=== PATIENT | female | born 1960 | race Caucasian/White ===

== ENCOUNTER → 2017-09-18 10:28 | Outpatient (CLI) | payer OTHER, SELFPAY ==
--- NOTE | 2017-09-18 10:31 | BI_ITS ---
MAMMOGRAPHY - BILATERAL SCREENING REASON FOR EXAM: Female, 57 years old. Routine annual screening examination. PERTINENT HISTORY: Non-contributory. TECHNIQUE: Digital bilateral breast justin (3D mammographic acquisition) in the CC and MLO projections. 2-D mediolateral oblique (MLO) and craniocaudad (CC) views of both breasts were obtained. CAD: Full Field Digital Mammography with Computer Added Detection was performed. COMPARISON: Comparison is made with prior study dated September 13, 2016 and April 07, 2014. FINDINGS: Breast Composition: There are scattered areas of fibroglandular density. There are no dominant masses or suspicious calcifications. Stable small bilateral axillary lymph nodes. No other significant abnormalities are identified. There has been no significant change since the prior study. BI/SCREENING MAMM (CAD), BILAT IMPRESSION: Stable bilateral screening mammogram. Yearly follow-up mammogram recommended. (A) ASSESSMENT CATEGORY: BIRADS Category 2: Benign. A letter regarding these results will be sent to the patient by the facility within 30 days. Approximately 10% of breast cancers are not detected by mammography. A normal mammogram should not delay biopsy of a clinically suspicious abnormality. [id number] Electronically Signed: Teodoro Mcghee MD at 12:58 EDT Tel [phone], Service support ,
--- NOTE | 2017-09-18 10:34 | BD_ITS ---
STUDY: DUAL ENERGY X-RAY ABSORPTIOMETRY / DXA REASON FOR EXAM: Female, 57 years old. The patient is postmenopausal. No loss of height. TECHNIQUE: Bone Mineral Density (BMD) measurements of lumbar spine and bilateral hips were obtained. COMPARISON: None. FINDINGS: Lumbar Spine (L1-L4): g/cm2 (1.077) / T-score (-0.9) / Z-score (0.2) Findings are suggestive of normal bone density with a low fracture risk. Left Femur Total: g/cm2 (0.959) / T-score (-0.4) / Z-score (0.4) Left Femoral Neck: g/cm2 (0.824) / T-score (-1.5) / Z-score (-0.4) Right Femur Total: g/cm2 (0.983) / T-score (-0.2) / Z-score (0.6) Right Femoral Neck: g/cm2 (0.852) / T-score (-1.3) / Z-score (-0.2) BD/Dexa Bone Density Study IMPRESSION: The patient is considered osteopenic as outlined below according to World Noel Organization (WHO) criteria with a moderate fracture risk. Reference Information: The T-score is the number of standard deviations above or below the standard which is normal for young adults at their peak bone mineral density. The World Health Organization (WHO) interprets the T-scores as follows: Above -1 Normal bone density Between -1 and -2.5 Osteopenia Equal to / or below -2.5 Osteoporosis As a practical clinical guideline, osteopenia may be graded as follows: Mild -1 through -1.5 Moderate -1.6 through -2.0 Severe -2.1 through -2.4 The Z-score is the number of standard deviations above or below age-matched controls. A Z-score of less than -1.5 would be considered abnormal. References: 1. NIH Osteoporosis and Related Bone Diseases http://www.osteo.org 2. International Society for Clinical Densitometry http://www.iscd.org 3. National Osteoporosis Foundation http://www.nof.org Electronically Signed: Teodoro Mcghee MD at 11:13 EDT Tel [phone], Service support ,
== END ==
PROVIDERS: Family Provider Internal Medicine; PCP Internal Medicine; Visit Provider Internal Medicine
DX: Z12.31 Encounter for screening mammogram for malignant neoplasm of breast (principal); Z78.0 Asymptomatic menopausal state
CPT/HCPCS: 77063; 77067; 77080

== ENCOUNTER → 2019-04-29 08:16 | Outpatient (CLI) | payer OTHER, SELFPAY ==
[2019-02-14 08:32] VITALS: BMI 39.3
--- NOTE | 2019-04-29 08:20 | BI_ITS ---
MAMMOGRAPHY - BILATERAL SCREENING 3-D TOMOSYNTHESIS REASON FOR EXAM: Female, 59 years old. NO FAM HX -- GAINED WEIGHT SINCE LAST EXAM PERTINENT HISTORY: No significant family history. TECHNIQUE: 2-D mammograms and 3-D Tomosynthesis of the breast (s) were performed. CAD was performed. COMPARISON: 09/18/2017, 09/13/2016, 04/07/2014 FINDINGS: The breast composition is composed of scattered fibroglandular density. Scattered benign calcifications are seen. No dense spiculated masses or suspicious microcalcifications are identified. No architectural distortion is identified. There is no skin thickening or retraction. There has been no significant change since the prior study. BI/SCREEN MAMM (CAD) W/JESE BILAT IMPRESSION: No mammographic signs of malignancy. Routine yearly mammograms recommended. ASSESSMENT CATEGORY: BIRADS Category 2: Benign. A letter regarding these results will be sent to the patient by the facility within 30 days. FOLLOW UP RECOMMENDATION: Yearly follow up mammogram recommended. (A) Approximately 10% of breast cancers are not detected by mammography. A normal mammogram should not delay biopsy of a clinically suspicious abnormality. Electronically Signed: Bernardo Borrego MD at 14:57 EST Tel [phone], Service support ,
== END ==
PROVIDERS: Family Provider Internal Medicine; PCP Internal Medicine; Referring Provider Internal Medicine; Visit Provider Internal Medicine
DX: Z12.31 Encounter for screening mammogram for malignant neoplasm of breast (principal)
CPT/HCPCS: 77063; 77067

== ENCOUNTER → 2020-04-05 09:46 | Outpatient (CLI) | payer OTHER, SELFPAY ==
[2020-03-08 08:53] VITALS: BMI 38.5
[2020-04-05 12:22] LABS: Anion Gap 3 (5-15); BUN 21 mg/dL (7-18); BUN/Creat Ratio 19.6 RATIO (10-20); Calcium,Total 9.8 mg/dL (8.5-10.1); Chloride 107 mmol/L (98-107); Creatinine, Serum 1.07 mg/dL (0.55-1.02); EST Glomerular Filtration Rate 55 mL/min (>60); Est Glom Filt Rate - Afr Amer 67 mL/min (>60); Glucose 107 mg/dL (74-106); Potassium 4.2 mmol/L (3.5-5.1); Sodium Level 140 mmol/L (136-145)
== END ==
PROVIDERS: PCP Internal Medicine; Referring Provider Nurse Practitioner Family; Visit Provider Nurse Practitioner Family
DX: I48.0 Paroxysmal atrial fibrillation (principal); E78.5 Hyperlipidemia, unspecified
CPT/HCPCS: 36415; 80048

== ENCOUNTER → 2020-05-04 09:25 | Outpatient (CLI) | payer OTHER, SELFPAY ==
[2019-02-14 08:32] VITALS: BMI 39.3
[2020-03-08 08:53] VITALS: BMI 38.5
--- NOTE | 2020-05-04 09:27 | BI_ITS ---
MAMMOGRAPHY - BILATERAL SCREENING REASON FOR EXAM: Female, 60 years old. Routine annual screening examination. PERTINENT HISTORY: NO FAM HX GAINED WEIGHT SINCE LAST EXAM NO SX TECHNIQUE: Digital bilateral breast jese (3D mammographic acquisition) in the CC and MLO projections. 2-D mediolateral oblique (MLO) and craniocaudad (CC) views of both breasts were obtained. CAD: Full Field Digital Mammography with Computer Added Detection was performed. COMPARISON: 04/29/2019 and 09/18/2017 FINDINGS: Breast Composition: The breasts are heterogeneously dense, which may obscure small masses. There are no dominant masses or suspicious calcifications. No other significant abnormalities are identified. BI/SCREEN MAMM (CAD) W/JESE BILAT IMPRESSION: Stable bilateral screening mammogram. Yearly follow-up mammogram recommended. (A) ASSESSMENT CATEGORY: BIRADS Category 2: Benign. A letter regarding these results will be sent to the patient by the facility within 30 days. Approximately 10% of breast cancers are not detected by mammography. A normal mammogram should not delay biopsy of a clinically suspicious abnormality. [id number] Electronically Signed: Maribeth Medina, at 16:33 EST Tel , Service support ,
--- NOTE | 2020-05-04 09:30 | BD_ITS ---
STUDY: DUAL ENERGY X-RAY ABSORPTIOMETRY / DXA REASON FOR EXAM: Female, 60 years old. RN TELEPHONE TRIAGE- EARLY AT 40 YRS OLD -- DIABETIC- TAKES MEDS -- HX OF SMOKING- QUIT IN 1988 -- TAKES THYROID MEDICATION -- TAKES 1200MG CALCIUM + MULTI -- DOES LITTLE EXERCISE -- NO MARINA TECHNIQUE: Bone Mineral Density (BMD) measurements of lumbar spine and bilateral hips were obtained. COMPARISON: Comparison is made with prior examination dated 09/18/2017. FINDINGS: Lumbar Spine (L1-L4): g/cm2 (1.021) / T-score (-1.5) / Z-score (-0.2) Findings are suggestive of osteopenia with a low fracture risk. Left Femur Total: g/cm2 (0.980) / T-score (-0.2) / Z-score (0.8) Left Femoral Neck: g/cm2 (0.881) / T-score (-1.1) / Z-score (0.1) Right Femur Total: g/cm2 (0.992) / T-score (-0.1) / Z-score (0.8) Right Femoral Neck: g/cm2 (0.870) / T-score (-1.2) / Z-score (0.1) The T-Scores on the most recent prior examination were: Lumbar Spine (L1-L4): There has been worsening of bone density since the previous examination. Left Femur Total: which represents an improvement of 2.2%. Right Femur Total: which represents an improvement of 0.9%. BD/Dexa Bone Density Study IMPRESSION: The patient is considered osteopenic as outlined below according to World Noel Organization (WHO) criteria with a low fracture risk. There has been improvement of bone density since the previous examination. Reference Information: The T-score is the number of standard deviations above or below the standard which is normal for young adults at their peak bone mineral density. The World Health Organization (WHO) interprets the T-scores as follows: Above -1 Normal bone density Between -1 and -2.5 Osteopenia Equal to / or below -2.5 Osteoporosis As a practical clinical guideline, osteopenia may be graded as follows: Mild -1 through -1.5 Moderate -1.6 through -2.0 Severe -2.1 through -2.4 The Z-score is the number of standard deviations above or below age-matched controls. A Z-score of less than -1.5 would be considered abnormal. References: 1. NIH Osteoporosis and Related Bone Diseases www osteo.org 2. International Society for Clinical Densitometry www iscd.org 3. National Osteoporosis Foundation www nof.org Electronically Signed: Teodoro Mcghee, at 10:02 EST , Service support ,
== END ==
PROVIDERS: PCP Internal Medicine; Referring Provider Internal Medicine; Visit Provider Internal Medicine
DX: Z12.31 Encounter for screening mammogram for malignant neoplasm of breast (principal); Z78.0 Asymptomatic menopausal state
CPT/HCPCS: 77063; 77067; 77080

== ENCOUNTER 2021-04-05 07:34 | Emergency (ER) | payer OTHER, SELFPAY ==
[2021-04-05 07:35] VITALS: BP 164/74; PULSE 79; RESP 16; TEMP 36.1; O2SAT 96; BMI 39.3
--- NOTE | 2021-04-05 07:54 | VDLE_ITS ---
Reason For Study: RLE pain RIGHT GSV is normal. CFV is compressible, spontaneous, phasic, competent and demonstrates normal augmentation. FV is compressible, spontaneous, phasic, competent and demonstrates normal augmentation. POP V is compressible, spontaneous, phasic, competent and demonstrates normal augmentation. T/P Trunk is compressible. PTV is compressible. RT PerV is compressible. Procedure This is a venous duplex using B-mode, color flow and spectral Doppler. Exam performed portable in ED. A preliminary report was called and/or faxed to ED @ 8:55 am. VL/Venous Duplex US, Unilateral Interpretation Summary Right lower extremity with no evidence of DVT or SVT noted. Ordering Physician: Levon Rod Referring Physician: Melva Crews Performed By: Oksana Mckeon, HUMZA, RVT
--- NOTE | 2021-04-05 07:55 | ED.VIS.LOWEX ---
HPI History of Present Illness Chief Complaint: Lower Extremity Injury Informant: patient Onset/Context/Timing Onset: Yesterday Context: Gradual Onset Timing: Continuous Quality of Pain: - (sore/ache) Location: right medial calf Current Severity: Mild Maximum Severity: Moderate Worsened by: walking, moving, palpation Relieved by: resting Associated Symptoms Associated Symptoms: Positive for - (no edema); Negative for Parasthesia, Weakness and Loss of Funtion Narrative Narrative: spont onset R calf pain w/o swelling, injury, chest pain, sob, palpitations, fevers, chills. wants to make sure it is not a DVT. No known hx of DVT/PE. Used to be on anticoagulants due to Afib but not any more; on rhythm control medications. [facility] Medical History Abnormal electrocardiogram [ECG] [EKG] Cough Diabetes mellitus type II, controlled Hyperlipidemia Iatrogenic hypothyroidism Nonrheumatic tricuspid (valve) insufficiency Palpitations Paroxysmal atrial fibrillation Paroxysmal atrial flutter Persistent atrial fibrillation Premature ventricular contractions Home Medications calcium carbonate 1,200 mg PO DAILY 02/23/17 [History Last Taken Unknown] magnesium oxide 500 mg PO DAILY 02/23/17 [History Last Taken Unknown] metformin 500 mg PO DAILY 02/23/17 [History Last Taken Unknown] omeprazole 20 mg PO DAILY 02/23/17 [History Last Taken Unknown] multivitamin 1 tab PO QDAY 08/09/17 [History Last Taken Unknown] lactobacillus combination no.8 3 billion cell capsule 3,000 mmu cells PO TID #90 cap 02/08/18 [Rx Last Taken Unknown] aspirin 81 mg tablet,delayed release 81 mg PO DAILY 08/15/18 [History Last Taken Unknown] calcium carbonate 500 mg-vitamin D3 200 unit-vitamin K2 90 mcg tablet tab PO tab 02/14/19 [History Last Taken Unknown] cranberry 400 mg capsule 400 mg PO DAILY 02/14/19 [History Last Taken Unknown] rosuvastatin 20 mg tablet 20 mg PO DAILY 02/14/19 [History Last Taken Unknown] diltiazem HCl 120 mg capsule,extended release 24 hr 120 mg PO DAILY cap 03/08/20 [History Last Taken Unknown] levothyroxine 137 mcg tablet 150 mcg PO DAILY tab 03/08/20 [History Last Taken Unknown] lisinopril 5 mg tablet 5 mg PO DAILY #90 tab 04/06/20 [Rx Last Taken Unknown] flecainide 150 mg tablet 150 mg PO BID #180 tab 01/12/21 [Rx Last Taken Unknown] Allergy/AdvReac Type Severity Reaction Status Date / Time metoprolol [From Lopressor] AdvReac Severe SOB, Verified 04/05/21 07:37 Wheezing Family History Mother Cancer Father Cancer CAD (coronary artery disease) Surgical History History of cardioversion (~2016) History of endometrial biopsy (09/22/08) History of repair of anterior cruciate ligament of right knee (~2011) History of tonsillectomy History of tubal ligation Social History Smoking Status: Never smoker how long ago did patient quit smokin years ago alcohol intake: current alcohol intake frequency: a few times a week Alcohol type: wine substance use type: does not use caffeine: Yes Type: coffee Number of servings: 1 ROS ROS ED Constitutional Constitutional ED: Denies chills or fever(s) Cardiovascular Cardiovascular: Denies chest pain, dyspnea or pedal edema Respiratory/Chest Respiratory/Chest: Denies cough or dyspnea Musculoskeletal Musculoskeletal: Reports extremity pain; Denies neck pain Integumentary Denies Abrasions, rash or wounds Neurologic Neurologic: Denies paresthesias or weakness EXAM Physical Exam Const Vital Signs: 04/05/21 07:35 Temperature 96.9 F L Temperature Source Temporal Pulse Rate 79 Respiratory Rate 16 Blood Pressure 164/74 H Blood Pressure Mean 104 Pulse Ox 96 Oxygen Delivery Method Room Air Positive well nourished and well developed General Appearance ED: well developed and NAD Neck full ROM and supple Back/Spine normal ROM and normal to inspection Extremity normal to inspection, full ROM and no pedal edema Extremity Narrative: mildly ttp medial right calf. no palpable cord, nodule, varicosity. nml inspection. neg Hamilton sign. good distal pulses. Neuro oriented x3, no focal motor deficits and no sensory deficits noted Sensorium / Orientation: alert Psych mental status grossly normal and thought process normal Skin no wounds Skin Narrative: no skin abn in RLE. Rashes: no rashes MDM MDM MDM Narrative Medical decision making narrative: Duplex u/s RLE obtained and is negative for any acute vascular abnormality. Reassured that this is likely muscular in etiology and supportive care advised. Discharge Plan Triage Chief Complaint: Lower Extremity Injury ED Provider: Levon Rod Dx/Rx/DC Orders Clinical Impression: Strain of right calf muscle Instructions: ED Muscle Strain, Extremity Prescriptions: No Action multivitamin tablet 1 tab PO QDAY RF: 0 Adult Probiotic 3 billion cell capsule 3,000 mmu cells PO TID Qty: 90 RF: 0 aspirin 81 mg tablet,delayed release (DR/EC) 81 mg PO DAILY RF: 0 rosuvastatin 20 mg tablet 20 mg PO DAILY RF: 0 calcium carb-vitamin D3-vit K2 500 mg calcium- 200 unit-90 mcg tablet PO RF: 0 cranberry 400 mg capsule 400 mg PO DAILY RF: 0 levothyroxine 137 mcg tablet 150 mcg PO DAILY RF: 0 metformin 500 MG tablet 500 mg PO DAILY RF: 0 calcium carbonate 600 MG tablet 1,200 mg PO DAILY RF: 0 omeprazole 20 MG capsule 20 mg PO DAILY RF: 0 magnesium oxide 500 MG capsule 500 mg PO DAILY RF: 0 diltiazem HCl 120 mg capsule,extended release 24hr 120 mg PO DAILY RF: 0 lisinopril 5 mg tablet 5 mg PO DAILY Qty: 90 RF: 3 flecainide 150 mg tablet 150 mg PO BID Qty: 180 RF: 3 Primary Care Provider: Melva Crews Referrals: Melva Crews, [Primary Care Provider] - 1 Week if not improving Disposition Disposition: Home, Self Care
[2021-04-05 09:16] VITALS: O2SAT 94
--- NOTE | 2021-04-05 09:18 | ED.RN ---
pt upset about care. pt states that she is not going to get better until she gets home and gets the steroids she needs. pt states that the dr would not give her what she needed and hopefully she doesnt wreck her car on her way home from coughing so much. pt given meds to help with cough before discharge. pt threw discharge papers in the trash when leaving
== END 2021-04-05 09:19 | disposition home or self-care (01) ==
PROVIDERS: Emergency Provider Emergency Medicine; PCP Internal Medicine
DX: S86.811A Strain of other muscle(s) and tendon(s) at lower leg level, right leg, initial encounter (principal); X58.XXXA Exposure to other specified factors, initial encounter; Y93.9 Activity, unspecified; Y92.9 Unspecified place or not applicable; Y99.9 Unspecified external cause status; E11.9 Type 2 diabetes mellitus without complications; E78.5 Hyperlipidemia, unspecified; I48.0 Paroxysmal atrial fibrillation; Z79.82 Long term (current) use of aspirin; Z79.84 Long term (current) use of oral hypoglycemic drugs
CPT/HCPCS: 93971; 99283

== ENCOUNTER 2021-08-11 08:20 | Outpatient (CLI) | payer OTHER, SELFPAY ==
--- NOTE | 2021-08-11 08:23 | BI_ITS ---
MAMMOGRAPHY - BILATERAL SCREENING REASON FOR EXAM: Female, 61 years old. Routine annual screening examination. PERTINENT HISTORY: Non-contributory. TECHNIQUE: Digital bilateral breast jese (3D mammographic acquisition) in the CC and MLO projections. 2-D mediolateral oblique (MLO) and craniocaudad (CC) views of both breasts were obtained. CAD: Full Field Digital Mammography with Computer Added Detection was performed. COMPARISON: Comparison is made with prior study dated 05/04/2020 and 04/29/2019. FINDINGS: Breast Composition: There are scattered areas of fibroglandular density. There are no dominant masses or suspicious calcifications. Stable small benign appearing bilateral axillary nodes. No other significant abnormalities are identified. There has been no significant change since the prior study. BI/SCRN MAMM (CAD)W/JESE BILAT IMPRESSION: Stable bilateral screening mammogram. Yearly follow-up mammogram recommended. (A) ASSESSMENT CATEGORY: BIRADS Category 2: Benign. A letter regarding these results will be sent to the patient by the facility within 30 days. Approximately 10% of breast cancers are not detected by mammography. A normal mammogram should not delay biopsy of a clinically suspicious abnormality. [id number] Electronically Signed: Teodoro Mcghee MD at 9:05 EDT ,
== END 2021-08-11 23:59 | disposition home or self-care (01) ==
LOC: OPBI 08:21
PROVIDERS: PCP Internal Medicine; Referring Provider Internal Medicine; Visit Provider Internal Medicine
DX: Z12.31 Encounter for screening mammogram for malignant neoplasm of breast (principal)
CPT/HCPCS: 77063; 77067

== ENCOUNTER 2021-09-14 17:00 | Outpatient (RCR) | payer OTHER, SELFPAY ==
--- NOTE | 2021-08-15 08:45 | HP.PTEVAL ---
Patient's Visit Information JOSÉ MIGUEL DE LA CRUZ is a 61 year old F referred to Physical Therapy by Dr. Cuong Alejandro DO with a diagnosis of R knee instability, h/o ACL reconstruction. Date of Evaluation: 08/15/21 Physical Therapist: ALEXANDER Ventura - Visit Plan Frequency: 2x /Week Duration: 4 Weeks Plan: 2X/ week for 4 weeks for R knee and hip strengthening and stability exercises to reach above goals including stairs, balance, gait and gastroc and HS flexibility with HEP. HEP: bridges 3 X 10, SLR 3 X 10, R hip abd 3 X 10, HS stretch in chair - Subjective In April she hurt her knee and was walking down the steps with a basket and not sure what happened. She is not sure if her knee gave out or she slipped. It made a huge crack noise. She got up and was able to get back up stairs but as the evening went on she felt it get tighter and could not put weight on it. She went to Urgent Care and she iced and [id number]. She saw Dr Lopez and she feels that it is shifting. Dr Lopez could not make it move. Walking on uneven ground and stairs it is unstable. She can go up and down stairs with 2 rails but she can not do stairs carrying something. Her pain is not all the time but if she is on her feet it will start bothering her. She had an X-ray done and showed a little bit of arthritis. She had an ACL graph in 2011 done as well. She feels like her knee wants to give out on her. - Pain R knee pain Pain Intensity (Out of 10): 0 Pain Intensity Range: 5 Comment: with walking - Objective Gait: Walks with slightly decrease stance time on the R LE. Normal stride. Decreased B hip extension. Pt is able to walk on heels and toes but has increase pain when walked on her heels. LE MMT: R hip abd 4-/5 and L hip abd 4/5, B knee flex 4/5, B knee ext 4/5, B hip flex 4/5. Bridges 3/4 normal ROM. Tight B HS but increase pain on the R and tight R gastroc. Ther-ex: bridges 3 X 10, SLR 3 X 10, R hip abd 3 X 10, HS stretch in chair. R knee AROM: 0-116 degrees knee flexion. L Knee AROM: 0-123 degrees knee flexion. SLB: L 20 seconds and R 3 seconds - Balance/Special Test Scores Lower Extremity Functional Score: 46 - Goals Goal 1:: I HEP Goal Time Frame: 4-6 Weeks Goal 2:: Be able to carry a basket up and down the stairs recip with a hand rail if needed without the feeling of her R knee giving out on her. Goal Time Frame: 4-6 Weeks Goal 3:: Be able to get up and out of a chair with no knee pain with no arms. Goal Time Frame: 4-6 Weeks Goal 4:: Be able to walk 1 mile without pain. Goal Time Frame: 4-6 Weeks Goal 5:: Be able to SLB on the R for 30 seconds Goal Time Frame: 4-6 Weeks - Rehabilitation Potential Rehabilitation Potential: Good - Anticipated Interventions Patient/Client Instruction: Educate patient on: Condition, Plan of Care For the Purpose of:: To decrease pain, To increase ROM, To improve nutrient delivery to tissue, To improve muscle performance and motor function, To improve ability to perform ADL's, To increase tolerance to activity/condition/position, To improve performance and independence with ADL's, To decrease level of supervision to perform tasks, To improve ability of physical actions for home/community/work/leisure, To improve gait and locomotor functions, To improve health of tissue, To decrease soft tissue restriction, To increase flexibility/ROM, To improve balance Therapeutic Exercise to Include: Strength training, Balance training, Flexibilty training, Gait and locomotor training, Neuromotor development, Active ROM For the Purpose of:: To decrease pain, To increase ROM, To improve nutrient delivery to tissue, To improve muscle performance and motor function, To improve ability to perform ADL's, To increase tolerance to activity/condition/position, To decrease level of supervision to perform tasks, To improve ability of physical actions for home/community/work/leisure, To improve gait and locomotor functions, To improve health of tissue, To increase flexibility/ROM Functional Training to Include: Gait training For the Purpose of:: To improve gait and locomotor functions Thank you for the opportunity to evaluate your patient. For Medicare and Medicare HMO plans, please review the plan of care and approve it. It will need to be FAXED BACK to us at [phone] for Medicare purposes. For Medicare only, by signing this I certify the plan of care. Please let me know if there are questions or concerns regarding this plan of care. Physician Signature: Date:
--- NOTE | 2021-09-20 13:58 | HP.PTDCSUM ---
It has been my pleasure to treat JOSÉ MIGUEL DE LA CRUZ referred by Dr. Cuong Alejandro DO, with the diagnosis of R knee instability, h/o ACL reconstruction for a total of 8 visit(s). Discharge Date: 09/20/21 Please see the following information for a summary of their discharge status. Subjective: Her knee has been a little wobbly over the weekend. She stepped wrong on the vaccum hose and uneven ground in the [place] she feels unsteady. When she tweaks it she is more susceptible to more instability. said to try PT for several weeks and has an appt with the Dr next week to see how PT went. Pt is not doing her HEP faithfully. R knee pain Pain Intensity (Out of 10): 0 % Improvement: 50 Objective/Function: Still uses a hand rail to go down the steps at home and not sure it is in her head. Pt able to SLB on the R for about 20 seconds. Pt is able to sit to stand out of a chair now with no arms without pain Goal 1:: I HEP Goal Progress: Goal Met Goal 2:: Be able to carry a basket up and down the stairs recip with a hand rail if needed without the feeling of her R knee giving out on her. Goal Progress: Not Progressing Goal 3:: Be able to get up and out of a chair with no knee pain with no arms. Goal Progress: Goal Met Goal 4:: Be able to walk 1 mile without pain. Goal Progress: Goal Met Goal 5:: Be able to SLB on the R for 30 seconds Goal Progress: Progressing Plan: Hold chart until after appt. Pt called in on 09-19-2021 and said she would continue with her exercises at home. DC PT to HEP Discharge Comments: DC PT to HEP If there are questions or concerns regarding this patient's physical therapy, please feel free to call me at [phone]. Thank you for the referral of this patient. Sincerely, Radha Pagan, MPT Balance/Gait/Functional tests - Balance/Special Test Scores Lower Extremity Functional Score: 50
== END 2021-09-14 19:00 | disposition home or self-care (01) ==
LOC: PT 17:00
PROVIDERS: PCP Internal Medicine; Referring Provider Orthopaedic Surgery; Visit Provider Orthopaedic Surgery
DX: M23.51 Chronic instability of knee, right knee (principal)
CPT/HCPCS: 97110; 97161; 97530

== ENCOUNTER → 2022-03-28 | Outpatient (CLI) | payer OTHER, SELFPAY ==
--- NOTE | 2022-03-28 06:35 | ECHOD_ITS ---
Reason For Study: AFIB/FLUTTER Procedure This was a 2D Doppler, Color Flow transthoracic echocardiogram. Exam performed in department. Left Ventricle Normal LV size. Left ventricular systolic function is normal. The estimated ejection fraction is 60 %. No regional wall motion abnormalities noted. Right Ventricle Normal RV size. Normal systolic function. Atria Normal left atrium. Normal right atrium. Mitral Valve Normal mitral valve. Tricuspid Valve The tricuspid valve is not well visualized. Mild tricuspid valve insufficiency. Pulmonary artery systolic pressure is 26 mmHg. Aortic Valve The aortic valve is not well visualized. Pulmonic Valve The pulmonic valve is not well visualized. Great Vessels Normal aortic root. The pulmonary artery is normal size. Normal inferior vena cava. Pericardium/Pleural No pericardial effusion. MMode/2D Measurements & Calculations LVIDd: 4.5 cm IVSd: 0.88 cm Ao root diam: 2.9 cm LVIDs: 2.9 cm LVPWd: 0.77 cm RVDd: 3.2 cm FS: 36.2 % LAV(MOD-bp): 79.3 ml LA A4 area: 21.9 cm2 LA dimension(2D): 4.3 cm LAV(MOD-bp) Indexed: 39.8 ml/m2 LAV(MOD-sp2): 77.2 ml LAV(MOD-sp4): 75.7 ml RA A4 area: 12.3 cm2 Time Measurements MV dec time: 0.20 sec Doppler Measurements & Calculations MV E max anatoliy: 99.6 cm/sec Lat Peak E' Anatoliy: 8.1 cm/sec Med Peak E' Anatoliy: 8.6 cm/sec MV A max anatoliy: 98.3 cm/sec E/E' lat: 12.2 E/E' med: 11.5 MV E/A: 1.0 MV dec slope: 501.7 cm/sec2 Ao V2 max: 156.8 cm/sec LV V1 max: 102.9 cm/sec Ao max P.8 mmHg LV V1 max P.2 mmHg Ao V2 mean: 106.6 cm/sec LV V1 mean P.4 mmHg Ao mean P.2 mmHg LV V1 mean: 73.0 cm/sec Ao V2 VTI: 38.2 cm LV V1 VTI: 26.7 cm PA V2 max: 126.1 cm/sec TR max anatoliy: 235.5 cm/sec TR max P.2 mmHg ECHO/Echo Complete Interpretation Summary Normal LV size. Left ventricular systolic function is normal. The estimated ejection fraction is 60 %. Pulmonary artery systolic pressure is 26 mmHg. Ordering Physician: Mable Gonzalez Referring Physician: Melva Crews Performed By: Oksana Mckeon, HUMZA, RVT
== END | disposition home or self-care (01) ==
PROVIDERS: PCP Internal Medicine; Visit Provider Nurse Practitioner Gerontology
DX: I48.0 Paroxysmal atrial fibrillation (principal); I10 Essential (primary) hypertension
CPT/HCPCS: 78452; 93017; 93306; A9500; A4216; J2785

== ENCOUNTER → 2024-04-23 | Outpatient (CLI) | payer MEDICARE, OTHER, SELFPAY | END | disposition home or self-care (01) | LOC: LABSPEC 11:06 | PROVIDERS: PCP Internal Medicine; Referring Provider Physician Assistant; Visit Provider Physician Assistant | DX: R30.0 Dysuria (principal) | CPT/HCPCS: 87077; 87086; 87088; 87186 ==

== ENCOUNTER → 2025-04-06 | Outpatient (CLI) | payer MEDICARE, OTHER, SELFPAY ==
--- NOTE | 2025-04-06 15:15 | BI_ITS ---
EXAM: SCRN MAMM (CAD)W/JESE BILAT DATE: 04/06/2025 CLINICAL HISTORY: F, Age 64 y/o , SCRN MAMM (CAD)W/JESE BILAT No family history. TECHNIQUE: Procedure Code: [id number] Modality: MG Procedure: SCRN MAMM (CAD)W/JESE BILAT COMPARISON: Prior exam(s) dated prior outside examination dated November 13, 2022.. FINDINGS: TISSUE DENSITY: There are scattered areas of fibroglandular density. Bilateral Breast Mammographic Findings: No significant masses, calcifications or other abnormalities are identified. Stable small benign-appearing bilateral axillary lymph nodes. No suspicious masses, areas of developing architectural distortion, or suspicious calcifications. There has been no significant interval change. BI/SCRN MAMM (CAD)W/JESE BILAT IMPRESSION: Stable bilateral screening mammogram. OVERALL FINAL ASSESSMENT BI-RADS 2: BENIGN RECOMMENDATION: Routine annual follow-up in 1 Year Additional Recommendation none A letter with findings and recommendations will be mailed to the patient. Reading Location: [place] [id number]
== END | disposition home or self-care (01) ==
LOC: OPBI 15:01
PROVIDERS: PCP Internal Medicine; Referring Provider Internal Medicine; Visit Provider Internal Medicine
DX: Z12.31 Encounter for screening mammogram for malignant neoplasm of breast (principal)
CPT/HCPCS: 77063; 77067